=== PATIENT | female | born 2000 | race Caucasian/White ===

== ENCOUNTER 2024-03-11 19:42 | Emergency (ER) | payer SELFPAY ==
[~2024-03-11] VITALS: Ht 157.5 cm; Wt 88.5 kg
[2024-03-11 20:01] VITALS: BP 115/85; PULSE 108; RESP 18; TEMP 99.3; O2SAT 97
[2024-03-11 20:14] VITALS: O2SAT 100
[2024-03-11] MEDS: ALUMINUM HYD/MAG/SIMETHICONE 30 ML UDC PO ONE (20:36)
[2024-03-11] MEDS ORDERED: SUCR1TAB56 PO (21:07)
[2024-03-11] MEDS ORDERED: FAMO-90 PO (21:07)
[2024-03-11 21:15] VITALS: BP 116/68; PULSE 93; RESP 18; TEMP 98.2; O2SAT 100
== END 2024-03-11 21:15 | disposition home or self-care (01) ==
LOC: MED 19:42
DX: K29.70 Gastritis, unspecified, without bleeding (principal); Z79.899 Other long term (current) drug therapy
CPT/HCPCS: 81002; 81025; 99283